=== PATIENT | female | born 1980 | race Caucasian/White ===

== ENCOUNTER 2019-01-07 19:12 | Emergency (ER) | payer OTHER ==
[2019-01-07 19:58] VITALS: BP 115/67
[2019-01-07] MEDS ORDERED: ACETAMINOPHEN 325 MG TABLET PO ONE (20:12)
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
== END 2019-01-07 21:10 | disposition home or self-care (01) ==
LOC: ER 19:12
DX: S40.811A Abrasion of right upper arm, initial encounter (principal); M54.2 Cervicalgia; V53.6XXA Passenger in pick-up truck or van injured in collision with car, pick-up truck or van in traffic accident, initial encounter
CPT/HCPCS: 99283